=== PATIENT | female | born 1950 | race Caucasian/White ===

== ENCOUNTER 2021-07-04 09:28 | Outpatient (CLI) | payer BC, OTHER ==
[2021-07-04 10:15] LABS: *BILIRUBIN,URIN NEGATIVE (NEGATIVE); *BLOOD, URINE NEGATIVE (NEGATIVE); *CLARITY,URINE CLEAR (CLEAR); *COLOR,URINE YELLOW (YELLOW); *KETONES,URINE NEGATIVE (NEGATIVE); *UROBILINOGEN,URINE 0.2 E.U./dl (NORMAL); LEUKOCYTE ESTERASE ,URINE 1+ (NEGATIVE); NITRITE, URINE POSITIVE (NEGATIVE); UGLUCOSE NEGATIVE (NEGATIVE)
[2021-07-04 10:37] LABS: HEMATOCRIT 41.6 % (31.2-41.9); MEAN CORPUSCULAR HEMOGLOBIN 29.8 uug (24.7-32.8); MEAN CORPUSCULAR VOLUME 86.3 fL (75.5-95.3); PLATELET COUNT (AUTO) 183 K/uL (179-408)
[2021-07-04 10:51] LABS: THYROID STIMULATING HORMONE 1.292 mIU/mL (0.358-3.740)
[2021-07-04 11:12] LABS: BILIRUBIN,TOTAL 0.8 mg/dL (0.2-1.0); CREATININE 1.3 mg/dL (0.6-1.3); URIC ACID 5.1 mg/dL (2.6-6.0)
[2021-07-04 13:22] LABS: BACTERIA,URINE MANY /HPF (NONE SEEN); RBC,URINE 0-3 /HPF (0-3); SQUAMOUS EPITHELIAL CELL,UR FEW /HPF (NONE SEEN)
[2021-07-12 07:21] LABS: *VITAMIN D 25-OH, D2 <1.0 ng/mL
== END 2021-07-04 23:59 | disposition home or self-care (01) ==
LOC: LAB 09:28
PROVIDERS: ATTEND Legal Medicine
DX: E11.9 Type 2 diabetes mellitus without complications (principal); E78.5 Hyperlipidemia, unspecified; D64.9 Anemia, unspecified; E55.9 Vitamin D deficiency, unspecified; R53.1 Weakness; R10.9 Unspecified abdominal pain; M47.815 Spondylosis without myelopathy or radiculopathy, thoracolumbar region; M81.0 Age-related osteoporosis without current pathological fracture; Z00.00 Encounter for general adult medical examination without abnormal findings
CPT/HCPCS: 82746; 83550; 84443; 84550; 85025; 87077; 87086

== ENCOUNTER 2022-06-07 09:23 | Outpatient (CLI) | payer BC, OTHER | END 2022-06-07 23:59 | disposition home or self-care (01) | LOC: LAB 09:23 | PROVIDERS: ATTEND Legal Medicine | DX: M47.13 Other spondylosis with myelopathy, cervicothoracic region (principal); M50.01 Cervical disc disorder with myelopathy, high cervical region; M47.12 Other spondylosis with myelopathy, cervical region; M85.88 Other specified disorders of bone density and structure, other site; M48.02 Spinal stenosis, cervical region; M43.22 Fusion of spine, cervical region | CPT/HCPCS: 72050 ==

== ENCOUNTER 2023-06-29 12:20 | Emergency (ER) | payer BC, OTHER ==
[~2023-06-29] VITALS: Ht 160 cm; Wt 51.3 kg
[2023-06-29 12:25] VITALS: O2SAT 100
== END 2023-06-29 14:44 | disposition home or self-care (01) ==
LOC: ER 12:20
DX: U07.1 COVID-19 (principal)
CPT/HCPCS: 99283; 87635; 87426; 36415; C9803; A4606; A4663

== ENCOUNTER 2025-02-03 09:30 | Emergency (ER) | payer MEDICARE ==
[~2025-02-03] VITALS: Ht 160 cm; Wt 51.3 kg
[~2025-02-03 09:30] MED LIST: FAMO40TA7 PO; SUCR1TAB31 PO
[2025-02-03 12:16] VITALS: BP 149/92; O2SAT 98
== END 2025-02-03 12:16 | disposition home or self-care (01) ==
LOC: ER 09:30
DX: M19.042 Primary osteoarthritis, left hand (principal); M19.041 Primary osteoarthritis, right hand; Z88.7 Allergy status to serum and vaccine
CPT/HCPCS: 73130; A4606; A4663